=== PATIENT | female | born 1990 | race Caucasian/White ===

== ENCOUNTER 2017-02-11 09:00 | Emergency (ER) ==
[2017-02-11 09:21] VITALS: BP 143/90
--- NOTE | 2017-02-11 10:20 | PROVIDER DOCUMENTATION ---
HPI-EENT General - General Chief Complaint: Cold Symptoms Stated Complaint: COLD SX Time Seen by Provider: 02/11/17 10:02 Source: patient Allergies/Adverse Reactions: Patient Allergies Allergy/AdvReac Type Severity Reaction Status Date / Time tramadol AdvReac Severe "HEAVINESS Verified 09/20/16 21:27 IN CHEST" Home Medications: Home Medication List Medication Instructions Recorded Confirmed Last Taken Type D-Methorphan Hb/P-Epd HCl/Bpm 5 ml PO Q6H PRN PRN #1 syrup 02/11/17 Unknown Rx [Bromfed Dm Cough Syrup] Prednisone [Deltasone] 20 mg PO DIRECTED #12 tablet 02/11/17 Unknown Rx - History of Present Illness-EENT General Nature of Presenting Problem: 26 y/o WF c/o cough x 2 days, subjective fevers, and feeling like she cannot take a deep breath in. Patient states she has a hx of asthma, and gets bronchitis frequently, and this feels the same. Took her child's nebulizer at home which improved symptoms and her albuterol inhaler this morning. Denies ENT pain, abdominal pain. Had diarrhea over 1 week ago, not related to these symptoms. Both children are sick. Review of Systems - Adult - REVIEW OF SYSTEMS - ADULT Constitutional: reports: see HPI, fever, fatique. denies: chills Eyes: reports: no symptoms reported. denies: blurred vision, double vision, eye pain Ears, Nose, Mouth & Throat: reports: no symptoms reported. denies: ear pain, nose pain, throat pain Cardiovascular: reports: no symptoms reported. denies: chest pain, palpitations Respiratory: reports: see HPI, cough, shortness of breath, wheezing Gastrointestinal: reports: see HPI, diarrhea. denies: abdominal pain, poor appetite, vomiting Genitourinary: reports: no symptoms reported. denies: dysuria, discharge, frequency, incontinence Musculoskeletal: reports: no symptoms reported. denies: bone pain, back pain, muscle aches Integumentary: reports: no symptoms reported. denies: rash Neurological: reports: no symptoms reported. denies: headache/migraines Psychiatric: reports: no symptoms reported Endocrine: reports: no symptoms reported Hematologic/Lymphatic: reports: no symptoms reported Allergic/Immunologic: reports: no symptoms reported All Other Systems: Reviewed and Negative Past History - Adult - PAST MEDICAL HISTORY-ADULT Review of Records: reports: Old Records Reviewed, Nursing Assessment Review, Medications Reviewed, Social history reviewed & non-contributory. Major Childhood Illnesses: reports: denies history Cardiovascular: reports: HTN Respiratory: reports: asthma Gastrointestinal: reports: denies history Obstetrical/Gynecological: reports: denies history Genitourinary: reports: denies history Musculoskeletal: reports: denies history Neurological: reports: denies history Endocrine/Immune: reports: denies history Other Conditions: reports: denies history - PRIOR SURGERIES/PROCEDURES Surgical/Procedure History: reports: other (left foot surgery) - PRIOR HOSPITALIZATIONS Prior Hospitalizations: reports: none - IMMUNIZATION STATUS Childhood Immunizations: See Nurse Assessment Flu Vaccine: See Nurse Assessment - FAMILY HISTORY Family History: reviewed, not pertinent - SOCIAL HISTORY Smoking: denies Substance Use: none/never Alcohol Use Frequency: never Physical Exam- EENT - Physical Exam EENT Initial Vital Signs Reviewed: Yes General Appearance: appears well, alert, no apparent distress Eye Exam: bilateral eye: normal inspection, PERRL, EOMI Ear Exam: bilateral ear: auricle normal, canal normal, TM normal Nasal Exam: normal inspection Throat Exam: normal mouth inspection, pharynx normal Neck: non-tender, full range of motion, supple, normal inspection. negative: lymphadenopathy Respiratory: chest non-tender, lungs clear, normal breath sounds, no pleuratic chest pain, no respiratory distress, no accessory muscle use. negative: respiratory distress, decreased breath sounds, accessory muscle use, crackles, rales, rhonchi, wheezing Cardiovascular: normal peripheral pulses, regular rate, rhythm Abdominal Exam: normal bowel sounds, non tender, soft, no organomegaly, no pulsatile mass. negative: abdominal bruit, abnormal bowel sounds, distended, guarding, rigid, rebound, tenderness Extremity: non-tender, normal gait Integumentary: normal color, normal turgor, warm/dry Neurologic: grossly normal, no motor/sensory deficits Psych/Mental Status: normal mood/affect, normal thought content, normal thought process, oriented x 3 Progress - PLAN OF CARE/RESULTS Progress/Plan/Lab Results: Vital Signs Temp Pulse Resp BP Pulse Ox 02/11/17 09:16 98.8 F 90 14 143/90 97 tramadol Adverse Reaction (Severe, Verified 09/20/16 21:27) "HEAVINESS IN CHEST" Orders Category Date Time Status CHEST-2 VIEWS [RAD] Stat Exams 02/11/17 10:07 Taken - XRAY 1 XRAY: Bilateral XRAY Study: Chest Impression: Normal (no pneumonia per Dr. Singh, radiology) Departure - Departure Time of Disposition Order: 10:55 DIAGNOSIS: Viral URI with cough Disposition: HOME 01 Certified Medical Emergency: Emergent Condition: Stable Additional Instructions: drink plenty of fluids and get plenty of sleep ED Follow Up Instructions: You have been treated by a care provider in the Emergency Department. These instructions are being provided to you so you can have an understanding of how to care for yourself upon discharge. Upon discharge from the Emergency Department, you are responsible for making arrangements for follow-up care by a physician of your choice. Take all prescribed medications as directed. Return to the Emergency Department immediately for any new or worsening symptoms. You may call the Physician Referral phone number at [phone] to obtain a list of Physicians who are taking new patients. Prescriptions: D-Methorphan Hb/P-Epd HCl/Bpm [Bromfed Dm Cough Syrup] 5 ml PO Q6H PRN PRN #1 syrup PRN Reason: Cough Prednisone [Deltasone] 20 mg PO DIRECTED #12 tablet Attestation - Physician/ [facility] Attestation Patient care was provided by Advanced Practice Provider:: Yes Advanced Practice Provider:: Giselle Saavedra Advanced Practice Provider documentation review:: The Mid-level provider documentation, treatment plan and medical decision making was reviewed by the physician who agrees with all treatment and medical decision making by the MLP.
--- NOTE | 2017-02-11 11:14 | Diag Imaging Result Document ---
PROCEDURE NAME: CHEST-2 VIEWS - 02/11/2017 FRONTAL AND LATERAL CHEST, TWO VIEWS: COMPARISON: 09/07/2016. FINDINGS: The lungs are well expanded. The heart is not enlarged. The vessels are not distended. There are no infiltrates. No pleural effusions. IMPRESSION: No pneumonia.
== END 2017-02-11 11:02 | disposition home or self-care (01) ==
LOC: P.ED 09:00
DX: J06.9 Acute upper respiratory infection, unspecified (principal); R05 Cough; R50.9 Fever, unspecified; R06.02 Shortness of breath; R06.2 Wheezing; R53.83 Other fatigue; R19.7 Diarrhea, unspecified; I10 Essential (primary) hypertension
CPT/HCPCS: 71020